=== PATIENT | female | born 1935 | race Caucasian/White ===

== ENCOUNTER 2016-09-02 14:21 | Emergency (ER) | payer MEDICARE ==
[~2016-09-02] VITALS: Ht 163.8 cm; Wt 55.3 kg
[~2016-09-02 14:21] MED LIST: GEMF600 PO; GLIM1 PO; GLUCTAB; LEVO.025 PO; PROP10TA26 PO; SULF1TAB47 PO; TOLT10TA PO
[2016-09-02 14:40] VITALS: BP 144/77; PULSE 87; RESP 16; TEMP 97.5; O2SAT 96
--- NOTE | 2016-09-02 14:50 | PD ---
HPI . congestion, cough, intermittent fever for 1 week Chief Complaint: Cold / Flu Symptoms Time Seen by Provider: 14:50 Travel History International Travel<30 days: Yes Contact w/Intl Traveler<30days: Yes Name of Country Traveled to: [facility] Traveled to known affect area: No History of Present Illness HPI 81-year-old female with history of hypertension, diabetes, hypothyroidism and chronic urinary tract infection here with complaints of cough, congestion, fever intermittently for 1 week (never checked temperature) as well as sore throat. Patient traveled on a cruise to the [facility] 2 weeks ago and states everybody in the cruise ship was sick. Today she is here with complaints of coughing and congestion. She admits to some chest tightness and tells me that she usually gets a shot that makes her feel much better. At the time of examination patient denies any chest pain, shortness breath, nausea, vomiting, diaphoresis, abdominal pain, GI complaints or weakness. She is accompanied by her . They are visiting from [place], [place]. Past surgical hysterectomy and bladder surgery. PFSH Past Medical History Hx Anticoagulant Therapy: Yes (asa 81mg) Cancer: Yes (OVARIAN) Cardiovascular Problems: Yes (htn on meds) Diabetes: Yes (type 2) Diminished Hearing: No Genitourinary: Yes (chronic uti) Hypertension: Yes Immunizations Current: Yes (FLU SHOT-2007) Thyroid Disease: Yes ?: Not Past Surgical History Genitourinary Surgery: Yes (bladder suspension) Hysterectomy: Yes Other Surgery: Yes (KIDNEY REPAIR) Social History Alcohol Use: No Tobacco Use: No Substance Use: No Allergies-Medications (Allergen,Severity, Reaction): Coded Allergies: ONI Inhibitors (Verified Allergy, Mild, 09/02/16) Cipro (Verified Allergy, Unknown, UNKNOWN, 09/02/16) Levaquin (Verified Allergy, Unknown, UNKNOWN, 09/02/16) Lisinopril (Verified Allergy, Unknown, UNKNOWN, 09/02/16) Reported Meds & Prescriptions Reported Meds & Active Scripts Active Proair Hfa 8.5 GM Inh (Albuterol Sulfate) 90 Mcg/Act Aer 2 Puff INH Q6H PRN 108 mcg/actuation Tessalon Perles (Benzonatate) 100 Mg Cap 100 Mg PO TID PRN Medrol Dosepak (Methylprednisolone) 4 Mg Dspk 4 Mg PO DIRECTED Per Pharmacist direction Zithromax Z-Neville (Azithromycin) 250 Mg Dspk 250 Mg PO DIRECTED 500 MG (2 tabs) day 1, then 1 tab days 2-5. Reported Glimepiride 1 Mg Tab 1 Mg PO DAILY Take with breakfast or first main meal Propranolol (Propranolol HCl) 10 Mg Tab Unknown Dose PO Q12HR Levothyroxine (Levothyroxine Sodium) 25 Mcg Tab 25 Mcg PO DAILY Metformin (Metformin HCl) 500 Mg Tab Unknown Dose PO BIDPC With meals Review of Systems General / Constitutional: Positive: Fever, Chills Eyes: No: Visual changes HENT: No: Headaches Cardiovascular: No: Chest Pain or Discomfort Respiratory: Positive: Cough, No: Shortness of Breath Gastrointestinal: No: Abdominal Pain Genitourinary: No: Dysuria Musculoskeletal: No: Pain Skin: No Rash Neurologic: No: Weakness Psychiatric: No: Depression Endocrine: No: Polydipsia Hematologic/Lymphatic: No: Easy Bruising Physical Exam Narrative GENERAL: AAO x 3, no acute distress, Well-nourished, well-developed patient. SKIN: Warm and dry. No visible rashes or bruising. HEAD: Normocephalic and atraumatic. EYES: No scleral icterus. No injection or drainage. ENT: No nasal drainage noted. Mucous membranes pink. Airway patent. No posterior pharynx erythema. Normal TM. NECK: Supple, trachea midline. No JVD. No lymphadenopathy. CARDIOVASCULAR: Regular rate and rhythm without murmurs, gallops, or rubs. RESPIRATORY: Breath sounds equally diminished bilaterally. No accessory muscle use. + scattered rhonchi. GASTROINTESTINAL: Abdomen soft, non-tender, nondistended. EXTREMITIES: No cyanosis or edema. BACK: Nontender without obvious deformity. No CVA tenderness. PSYCH: AAO x 3, normal affect. Data Data Last Documented VS Vital Signs Date Time Temp Pulse Resp B/P Pulse Ox O2 Delivery O2 Flow Rate FiO2 09/02/16 14:49 16 96 Room Air 09/02/16 14:40 97.5 87 144/77 Orders Chest, Single Ap (09/02/16 14:55) Albuterol-Ipratropium Neb (Duoneb Neb) (09/02/16 15:00) MDM Medical Decision Making Medical Screen Exam Complete: Yes Emergency Medical Condition: Yes Differential Diagnosis bronchitis, sinusitis, PNA Narrative Course 81-year-old female with history of hypertension, diabetes, hypothyroidism and chronic urinary tract infection here with complaints of cough, congestion, fever intermittently for 1 week (never checked temperature) as well as sore throat. Patient traveled on a cruise to the [facility] 2 weeks ago and states everybody in the cruise ship was sick. Today she is here with complaints of coughing and congestion. She admits to some chest tightness and tells me that she usually gets a shot that makes her feel much better. At the time of examination patient denies any chest pain, shortness breath, nausea, vomiting, diaphoresis, abdominal pain, GI complaints or weakness. She is accompanied by her . Although patient has recently traveled to the [facility], my index of suspicion for zika virus is low. Patient states there were not many mosquitoes in the area. She does not have any rash, arthralgia, or conjunctivitis. Symptoms are not consistent with zika exposure. Patient seen and examined. Chest x-ray ordered. No acute cardiopulmonary process. DuoNeb administered. will treat for acute bronchitis and sinusitis discussed with patient Explained that cough can linger for 6-8 weeks Given Z-Neville, Medrol Dosepak, Tessalon Perles and pro-air inhaler Patient verbalized understanding of instructions, questions were answered, and thanked me for their care. I advised them if their condition worsens, please return to the nearest emergency room for further care. Diagnosis Primary Impression: Acute bronchitis Qualified Code: J20.9 - Acute bronchitis, unspecified organism Additional Impression: Acute sinusitis Qualified Code: J01.90 - Acute sinusitis, recurrence not specified, unspecified location Patient Instructions: Acute Bronchitis (ED), General Instructions, Sinusitis ( ED) Additional Instructions: Please return to emergency department if your symptoms return or worsen. Follow up with your primary care provider. Take medications as prescribed. Med/Other Pt SpecificInfo: Prescription(s) given, No Change to Meds Scripts Albuterol 8.5 GM Inh (Proair Hfa 8.5 GM Inh)90 Mcg/Act Aer2 Puff INH Q6H PRN ( SHORTNESS OF BREATH) #1 INHALER Ref 0 108 mcg/actuation Prov:Jane Guajardo 09/02/16 Benzonatate (Tessalon Perles)100 Mg [id number] Mg PO TID PRN (COUGH) #30 CAP Ref 0 Prov:Jane Guajardo 09/02/16 Methylprednisolone Dosepak (Medrol Dosepak)4 Mg Dspk4 Mg PO DIRECTED #1 DSPK Ref 0 Per Pharmacist direction Prov:Jane Guajardo 09/02/16 Azithromycin (Zithromax Z-Neville)250 Mg [id number] Mg PO DIRECTED #1 DSPK Ref 0 500 MG (2 tabs) day 1, then 1 tab days 2-5. Prov:Jane Guajardo 09/02/16 Disposition: 01 DISCHARGE HOME Condition: Stable Jane Guajardo Sep 02, 2016 14:50
[2016-09-02] MEDS ORDERED: PROP10TA6 PO (14:53)
[2016-09-02] MEDS ORDERED: METF500T PO (14:53)
[2016-09-02] MEDS ORDERED: LEVO25TA4 PO (14:53)
[2016-09-02] MEDS ORDERED: GLIM1TAB PO (14:57)
[2016-09-02] MEDS ORDERED: RESP: ALBUTEROL 2.5 MG/IPRATROPIUM 0.5 MG NEB (SCH) INH ONE (15:00)
--- NOTE | 2016-09-02 15:44 | RADHPO ---
EXAM DATE/TIME: 09/02/2016 15:26 [facility] COMPARISON: No previous studies available for comparison. INDICATIONS : Short of breath. MEDICAL HISTORY : None. SURGICAL HISTORY : None. ENCOUNTER: Initial ACUITY: 3 days PAIN SCORE: 5/10 LOCATION: Bilateral chest FINDINGS: A single view of the chest demonstrates no focal consolidation or effusion. Moderate dextroscoliosis. No pneumothorax. CONCLUSION: 1. No acute findings. Moderate dextroscoliosis. Sixto Wood MD on September 02, 2016 at 15:41 Board Certified Radiologist. This report was verified electronically.
[2016-09-02] MEDS ORDERED: ALBUAER3 INH (15:47)
[2016-09-02] MEDS ORDERED: BENZ100 PO (15:47)
[2016-09-02] MEDS ORDERED: ZITHTAB PO (15:47)
[2016-09-02] MEDS ORDERED: MEDR4PAK PO (15:47)
== END 2016-09-02 15:57 | disposition home or self-care (01) ==
LOC: PHEFT 14:21
DX: J20.9 Acute bronchitis, unspecified (principal); J01.90 Acute sinusitis, unspecified
CPT/HCPCS: 71010; 94664; 99284

== ENCOUNTER 2016-10-18 09:10 | Observation (INO) | payer MEDICARE ==
[~2016-10-18] VITALS: Ht 162.6 cm; Wt 57.4 kg
[~2016-10-18 09:10] MED LIST changes: +ALBUAER3 INH; +BENZ100 PO; -GEMF600 PO; -GLIM1 PO; +GLIM1TAB PO; -GLUCTAB; -LEVO.025 PO; +LEVO25TA4 PO; +MEDR4PAK PO; +METF500T PO; -PROP10TA26 PO; +PROP10TA6 PO; -SULF1TAB47 PO; -TOLT10TA PO; +ZITHTAB PO
[2016-10-18 09:13] VITALS: BP 168/72; PULSE 77; RESP 15; TEMP 98; O2SAT 98
[2016-10-18 09:50] VITALS: BP 136/66; PULSE 91; RESP 18; O2SAT 98
[2016-10-18] MEDS ORDERED: SODIUM CHLORIDE 0.9% FLUSH 10 ML FLUSH IV FLUSH PRN (10:15)
--- NOTE | 2016-10-18 10:18 | PD ---
HPI Chief Complaint: Flank/Kidney Pain Time Seen by Provider: 09:51 Travel History International Travel<30 days: No Contact w/Intl Traveler<30days: No Traveled to known affect area: No History of Present Illness HPI The patient was seen and examined in the presence of the nurse. This patient complains of abdominal pain. Duration is 3 days. Pain is moderately severe. It's located in the right lower quadrant. No vomiting or diarrhea or fever or urinary complaints. 2 days ago she was seen at the [facility] emergency room in [place] for this problem. She reports extensive workup was done including a CAT scan that didn't show the cause of the problem and she was discharged. She is still having the pain. Has decreased appetite. No alleviating factors. PFSH Past Medical History Hx Anticoagulant Therapy: Yes (asa 81mg) Cancer: Yes (OVARIAN) Cardiovascular Problems: Yes (htn on meds) Diabetes: Yes Diminished Hearing: No Genitourinary: Yes (chronic uti) Hypertension: Yes Immunizations Current: Yes (FLU SHOT-2007) Thyroid Disease: Yes Tetanus Vaccination: Unknown Influenza Vaccination: Yes ?: Not Past Surgical History Genitourinary Surgery: Yes (bladder suspension) Hysterectomy: Yes (partial 40 years ago ) Other Surgery: Yes (KIDNEY REPAIR) Social History Alcohol Use: Yes (2 drinks a month ) Tobacco Use: No Substance Use: No Allergies-Medications (Allergen,Severity, Reaction): Coded Allergies: ONI Inhibitors (Verified Allergy, Mild, 09/02/16) Cipro (Verified Allergy, Unknown, UNKNOWN, 09/02/16) Levaquin (Verified Allergy, Unknown, UNKNOWN, 09/02/16) Lisinopril (Verified Allergy, Unknown, UNKNOWN, 09/02/16) Reported Meds & Prescriptions Reported Meds & Active Scripts Active Proair Hfa 8.5 GM Inh (Albuterol Sulfate) 90 Mcg/Act Aer 2 Puff INH Q6H PRN 108 mcg/actuation Reported Fenofibrate 160 Mg Tab 160 Mg PO DAILY Propranolol ER 24 HR (Propranolol HCl) 80 Mg Cap 80 Mg PO DAILY Levothyroxine (Levothyroxine Sodium) 75 Mcg Tab 75 Mcg PO DAILY Onglyza (Saxagliptin) 5 Mg Tab 5 Mg PO DAILY Glimepiride 2 Mg Tab 2 Mg PO BIDAC Lovaza (Vmqvb-5-Ddxc Ethyl Esters) 1 Gm Cap 2 Gm PO BID Metformin (Metformin HCl) 500 Mg Tab Unknown Dose PO BIDPC With meals Review of Systems General / Constitutional: No: Fever Eyes: No: Visual changes HENT: No: Headaches Cardiovascular: No: Chest Pain or Discomfort Respiratory: No: Shortness of Breath Gastrointestinal: Positive: Abdominal Pain, Loss of Appetite Genitourinary: No: Dysuria Musculoskeletal: No: Pain Skin: No Rash Neurologic: No: Weakness Psychiatric: No: Depression Endocrine: No: Polydipsia Hematologic/Lymphatic: No: Easy Bruising Physical Exam Narrative GENERAL: Well-nourished, well-developed patient with right lower quadrant pain SKIN: Focused skin assessment reveals no rash and nodules. Skin is Warm and dry. HEAD: Atraumatic. Normocephalic. EYES: Pupils equal and round. No scleral icterus. No injection or drainage. ENT: No nasal bleeding or discharge. Mucous membranes pink and moist. NECK: Trachea midline. No JVD. CARDIOVASCULAR: Regular rate and rhythm. No murmur appreciated. RESPIRATORY: No accessory muscle use. Clear to auscultation. Breath sounds equal bilaterally. GASTROINTESTINAL: Abdomen soft, right lower quadrant is tender, nondistended. Hepatic and splenic margins not palpable. No hernia detected. To a much lesser degree the left lower quadrant is tender MUSCULOSKELETAL: No obvious deformities. No clubbing. No cyanosis. No edema. NEUROLOGICAL: Awake and alert. No obvious cranial nerve deficits. Motor grossly within normal limits. Normal speech. PSYCHIATRIC: Appropriate mood and affect; insight and judgment normal. Data Data Last Documented VS Vital Signs Date Time Temp Pulse Resp B/P Pulse Ox O2 Delivery O2 Flow Rate FiO2 10/18/16 10:53 99 Room Air 10/18/16 09:50 91 18 136/66 10/18/16 09:13 98.0 Orders Urinalysis - C+S If Indicated (10/18/16 09:27) Complete Blood Count With Diff (10/18/16 10:06) Comprehensive Metabolic Panel (10/18/16 10:06) Lipase (10/18/16 10:06) Prothrombin Time / Inr (Pt) (10/18/16 10:06) Act Partial Throm Time (Ptt) (10/18/16 10:06) Ct Abd/Pel W Iv Contrast(Rout) (10/18/16 10:06) Iv Access Insert/Monitor (10/18/16 10:06) Ecg Monitoring (10/18/16 10:06) Oximetry (10/18/16 10:06) NPO (10/18/16 10:06) Sodium Chloride 0.9% Flush (Ns Flush) (10/18/16 10:15) Iohexol 350 Inj (Omnipaque 350 Inj) (10/18/16 11:42) Admit Order (Ed Use Only) (10/18/16 12:28) Labs Laboratory Tests Test 10/18/16 10/18/16 10:15 10:30 White Blood Count 8.4 TH/MM3 Red Blood Count 4.07 MIL/MM3 Hemoglobin 10.9 GM/DL Hematocrit 34.2 % Mean Corpuscular Volume 83.9 FL Mean Corpuscular Hemoglobin 26.8 PG Mean Corpuscular Hemoglobin 31.9 % Concent Red Cell Distribution Width 15.6 % Platelet Count 189 TH/MM3 Mean Platelet Volume 9.2 FL Neutrophils (%) (Auto) 74.7 % Lymphocytes (%) (Auto) 15.5 % Monocytes (%) (Auto) 8.8 % Eosinophils (%) (Auto) 0.8 % Basophils (%) (Auto) 0.2 % Neutrophils # (Auto) 6.3 TH/MM3 Lymphocytes # (Auto) 1.3 TH/MM3 Monocytes # (Auto) 0.7 TH/MM3 Eosinophils # (Auto) 0.1 TH/MM3 Basophils # (Auto) 0.0 TH/MM3 CBC Comment DIFF FINAL Differential Comment Prothrombin Time 11.5 SEC Prothromb Time International 1.0 RATIO Ratio Activated Partial 29.9 SEC Thromboplast Time Sodium Level 135 MEQ/L Potassium Level 3.7 MEQ/L Chloride Level 102 MEQ/L Carbon Dioxide Level 26.6 MEQ/L Anion Gap 6 MEQ/L Blood Urea Nitrogen 11 MG/DL Creatinine 0.80 MG/DL Estimat Glomerular Filtration 69 ML/MIN Rate Random Glucose 216 MG/DL Calcium Level 9.1 MG/DL Total Bilirubin 0.6 MG/DL Aspartate Amino Transf 17 U/L (AST/SGOT) Alanine Aminotransferase 15 U/L (ALT/SGPT) Alkaline Phosphatase 48 U/L Total Protein 7.3 GM/DL Albumin 3.2 GM/DL Lipase 180 U/L Urine Color YELLOW Urine Turbidity CLEAR Urine pH 7.0 Urine Specific Mclean 1.007 Urine Protein NEG mg/dL Urine Glucose (UA) 70 mg/dL Urine Ketones NEG mg/dL Urine Occult Blood NEG Urine Nitrite NEG Urine Bilirubin NEG Urine Urobilinogen LESS THAN 2.0 MG/DL Urine Leukocyte Esterase NEG Urine WBC 1 /hpf Urine Squamous Epithelial <1 /hpf Cells Microscopic Urinalysis Comment CULT NOT INDICATED MDM Medical Decision Making Medical Screen Exam Complete: Yes Emergency Medical Condition: Yes Medical Record Reviewed: Yes Differential Diagnosis Appendicitis, colitis, obstruction Narrative Course I have reviewed the patient's electronic medical record. Patient was here in August 2016 for bronchitis IV placed CBC is normal Metabolic profile is normal LFTs are normal Lipase is normal Coagulation studies are normal Urinalysis is clean CT of abdomen and pelvis is consistent with acute appendicitis I offered her pain medication but she declines I gave her 3 g IV Unasyn and discussed with general surgeon Dr. Jarrett will admit her and perform appendectomy when the operating rooms schedule allows Diagnosis Primary Impression: Acute appendicitis Qualified Code: K35.3 - Acute appendicitis with localized peritonitis Admitting Information Admitting Physician Requests: Admit Rajan Woodward MD Oct 18, 2016 10:18
[2016-10-18] MEDS ORDERED: LEVO75TA3 PO (10:38)
[2016-10-18] MEDS ORDERED: ONGL5TAB PO (10:38)
[2016-10-18] MEDS ORDERED: PROP80CA PO (10:38)
[2016-10-18] MEDS ORDERED: FENO160T PO (10:38)
[2016-10-18] MEDS ORDERED: OMEG1CAP53 PO (10:38)
[2016-10-18] MEDS ORDERED: GLIM2TAB PO (10:38)
[2016-10-18 10:44] LABS: BLOOD, URINE NEG (NEG); GLUCOSE,URINE 70 mg/dL (NEG); KETONE, URINE NEG (NEG); NITRITE,URINE NEG (NEG); SQUAMOUS EPITHELIAL CELL URINE <1 /hpf (0-5); URINE COLOR YELLOW (YELLW/STRAW)
[2016-10-18 10:45] LABS: COMMENT (UR) CULT NOT INDICATED; CULTURE IF INDICATED CULT NOT INDICATED
[2016-10-18 10:52] LABS: AUTOMATED NEUTROPHIL # 6.3 TH/MM3 (1.8-7.7); BASOPHIL % 0.2 % (0.0-2.0); EOSINOPHIL # 0.1 TH/MM3 (0-0.4); EOSINOPHIL % 0.8 % (0.0-4.0); HEMATOCRIT 34.2 % (35.0-46.0); HEMO FLAGS DIFF FINAL; LYMPH % 15.5 % (9.0-44.0); LYMPHOCYTE # 1.3 TH/MM3 (1.0-4.8); MEAN CELL VOLUME 83.9 FL (80.0-100.0); MEAN CORPUSCULAR HEMOGLOBIN 26.8 PG (27.0-34.0); MEAN CORPUSCULAR HGB CONC 31.9 % (32.0-36.0); MONO % 8.8 % (0.0-8.0); NEUT % 74.7 % (16.0-70.0); PLATELET COUNT 189 TH/MM3 (150-450); RED BLOOD COUNT 4.07 MIL/MM3 (4.00-5.30); RED CELL DISTRIBUTION WIDTH 15.6 % (11.6-17.2); WHITE BLOOD COUNT 8.4 TH/MM3 (4.0-11.0)
[2016-10-18 10:53] VITALS: O2SAT 99
[2016-10-18 10:57] LABS: APTT (PATIENT) 29.9 SEC (24.3-30.1); PROTHROMBIN TIME - PATIENT 11.5 SEC (9.8-11.6)
[2016-10-18 11:12] LABS: ALT (GPT) 15 U/L (10-53); ANION GAP 6 MEQ/L (5-15); AST (GOT) 17 U/L (15-37); BICARBONATE 26.6 MEQ/L (21.0-32.0); BLOOD UREA NITROGEN 11 MG/DL (7-18); CHLORIDE 102 MEQ/L (98-107); GLOMERULAR FILTRATION RATE 69 ML/MIN (>89); POTASSIUM 3.7 MEQ/L (3.5-5.1); SODIUM (NA) 135 MEQ/L (136-145)
[2016-10-18 11:14] LABS: ALKALINE PHOSPHATASE 48 U/L (45-117); TOTAL BILIRUBIN ADULT 0.6 MG/DL (0.2-1.0)
[2016-10-18] MEDS ORDERED: METFORMIN HOLD POST IV CONTRAST SCH (11:40)
[2016-10-18] MEDS ORDERED: IOHEXOL 350 MG/ML 10 ML VIAL (for RAD DIAG) IV ONE (11:42)
[2016-10-18] MEDS ORDERED: PROPOFOL 200 MG/20 ML AMP IV ONE (12:00)
[2016-10-18] MEDS ORDERED: KETOROLAC TROMETHAMINE 60 MG/2 ML (IM) VIAL IM ONE (12:00)
[2016-10-18] MEDS ORDERED: PHENYLEPH/NS 1000 MCG/10 ML SYR IV ONE (12:00)
[2016-10-18] MEDS ORDERED: LACTATED RINGER'S 1000 ML INJ 1,000 ML IV ONE (12:00)
[2016-10-18] MEDS ORDERED: ONDANSETRON HCL 4 MG/2 ML VIAL IV PUSH ONE (12:00)
--- NOTE | 2016-10-18 12:16 | RADRPT ---
EXAM DATE/TIME: 10/18/2016 11:27 [facility] COMPARISON: No previous studies available for comparison. INDICATIONS : Right lower quadrant pain that radiates to the right flank. IV CONTRAST: 95 cc Omnipaque 350 (iohexol) IV ORAL CONTRAST: No oral contrast ingested. RADIATION DOSE: 9.96 CTDIvol (mGy) MEDICAL HISTORY : Diabetes mellitus type 2. Hypertension. Carcinoma, ovarian. SURGICAL HISTORY : Hysterectomy. ENCOUNTER: Initial ACUITY: 4 - 6 days PAIN SCALE: 5/10 LOCATION: Right lower quadrant TECHNIQUE: Volumetric scanning of the abdomen and pelvis was performed. Using automated exposure control and ad justment of the mA and/or kV according to patient size, radiation dose was kept as low as reasonably achievable to obtain optimal diagnostic quality images. FINDINGS: LOWER LUNGS: There is patchy mild tree in bud infiltrate in the right lung base and a irregular focal nodular dens ity in the medial aspect of the right middle lobe LIVER: Cirrhotic appearance. No evidence of mass or biliary ductal dilatation. Gallbladder is mildly distend ed and contains numerous stones come including a stone within the gallbladder neck. SPLEEN: Upper limits of normal size. Small adjacent splenule in the inferior splenic hilum. PANCREAS: Within normal limits. KIDNEYS: Normal in size and shape. There is no mass, stone or hydronephrosis. ADRENAL GLANDS: Within normal limits. VASCULAR: There is no aortic aneurysm. BOWEL/MESENTERY: There are inflammatory changes adjacent to the cecum. Appendix is mildly distended. There are also a couple of cecal diverticula noted. The distal ileal bowel loops are focally unremarkable. There is no evidence of abscess or perforation. No evidence of bowel obstruction. ABDOMINAL WALL: Within normal limits. RETROPERITONEUM: There is no lymphadenopathy. BLADDER: No wall thickening or mass. Radiodense material at the bladder base and around the proximal urethra p resumably associated with incontinence therapy. REPRODUCTIVE: Uterus is surgically absent. No evidence of pelvic mass or free fluid. INGUINAL: There is no lymphadenopathy or hernia. MUSCULOSKELETAL: Within normal limits for patient age. CONCLUSION: Findings most consistent with appendicitis. Colonic diverticulosis is also present. Distended gallbladder with stones. Cirrhotic liver appearance. Nodular density in the right middle lobe will need to be followed. Followup with standard contrasted CT of the chest would be recommended on an outpatient basis. Brendan Alatorre MD on October 18, 2016 at 12:05 Board Certified Radiologist. This report was verified electronically.
[2016-10-18 12:45] VITALS: BP 137/69; PULSE 87; RESP 18; O2SAT 98
[2016-10-18] MEDS ORDERED: AMPICILLIN-SULBACTAM INJ 3 GM in SODIUM CHLORIDE 0.9% INJ 100 ML IV ONE (12:45)
[2016-10-18] MEDS ORDERED: SUGAMMADEX SODIUM 200 MG/2 ML VIAL IV PUSH ONE ×2 (12:52)
[2016-10-18] MEDS ORDERED: ACETAMINOPHEN 1000 MG/100 ML VIAL IV ONE (12:52)
[2016-10-18] MEDS ORDERED: DEXAMETHASONE SOD PHOS 4 MG/ML VIAL ONE (12:52)
[2016-10-18] MEDS ORDERED: BUPIVACAINE/EPINEPHRINE 0.25% 50 ML VIAL ONE (12:54)
[2016-10-18] MEDS ORDERED: FAMOTIDINE 20 MG/2 ML VIAL ONE (13:26)
--- NOTE | 2016-10-18 14:50 | HHI.HP ---
cc: Memo Jarrett MD HPI Service General Surgery Primary Care Physician Unknown Admission Diagnosis acute appendicitis Chief Complaint: Abdominal pain History of Present Illness This is a 81-year-old female who developed abdominal pain upon waking up on Saturday morning. Her was at the [facility] for treatment and was sent into the emergency department to [facility] in [place]. A CT scan was obtained and showed no acute findings. The patient was discharged from the ED and returned home to [place]. Since Saturday the pain has increased severely. She has no associated nausea or vomiting. She has little appetite. She came to the emergency room at [place] for evaluation of abdominal pain. A CT of abdomen and pelvis was obtained and showed acute appendicitis. A evaluation by dental surgery was requested for possible laparoscopic appendectomy. Attending Note - Dr. Jarrett Patient with findings C/W acute appendicitis. Abdomen painful on entire right side, not localized to RLQ. Peritoneal signs apparent. Risks discussed with patient, including but not limited to: bleeding, infection , need for drainage, intestinal leakage, need for reoperation. She vocalizes understanding and agrees to proceed. The exam, history, and the medical decision-making described in the above note were completed with the assistance of the mid-level provider. I reviewed and agree with the findings presented. I attest that I had a [id number] encounter with the patient on the same day, and personally performed and documented my assessment and findings in the medical record. Review of Systems Constitutional: COMPLAINS OF: Fatigue, DENIES: Fever, Chills Endocrine: DENIES: Polydipsia, Polyuria, Polyphagia Eyes: DENIES: Diplopia Ears, nose, mouth, throat: DENIES: Hearing loss Respiratory: DENIES: Apneas, Cough Cardiovascular: DENIES: Chest pain Gastrointestinal: COMPLAINS OF: Abdominal pain, DENIES: Nausea, Vomiting Genitourinary: DENIES: Urinary frequency, Urinary incontinence Musculoskeletal: DENIES: Joint pain Integumentary: DENIES: Abnormal pigmentation Hematologic/lymphatic: DENIES: Bruising Immunologic/allergic: DENIES: Eczema Neurologic: DENIES: Abnormal gait, Headache Psychiatric: DENIES: Mood changes, Depression Past Family Social History Past Medical History Diabetes mellitus Hypertension High cholesterol Hypothyroidism Uterine cancer Past Surgical History Removal of uterus Several bladder suspension surgeries Reported Medications See chart Allergies: Coded Allergies: ONI Inhibitors (Verified Allergy, Mild, 09/02/16) Cipro (Verified Allergy, Unknown, UNKNOWN, 09/02/16) Levaquin (Verified Allergy, Unknown, UNKNOWN, 09/02/16) Lisinopril (Verified Allergy, Unknown, UNKNOWN, 09/02/16) Active Ordered Medications Current Medications Medications (Trade) Dose Ordered Sig/Lynette Route Start Time Stop Time Status Last Admin (NS Flush) 2 ml UNSCH PRN IV FLUSH 10/18/16 10:15 Family History Noncontributory Social History Denies tobacco use Denies EtOH use Denies illicit drug use Physical Exam Vital Signs Vital Signs Date Time Temp Pulse Resp B/P Pulse Ox O2 Delivery O2 Flow Rate FiO2 10/18/16 12:45 87 18 137/69 98 Room Air 10/18/16 10:53 99 Room Air 10/18/16 09:50 91 18 136/66 98 Room Air 10/18/16 09:13 98.0 77 15 168/72 98 Physical Exam GENERAL: 81-year-old female resting in bed SKIN: Warm and dry. HEAD: Atraumatic. Normocephalic. EYES: Pupils equal and round. No scleral icterus. No injection or drainage. ENT: No nasal bleeding or discharge. Mucous membranes pink and moist. NECK: Trachea midline. CARDIOVASCULAR: Regular rate and rhythm. RESPIRATORY: No accessory muscle use. Clear to auscultation. Breath sounds equal bilaterally. GASTROINTESTINAL: Abdomen soft, tenderness in the right lower quadrant with palpation. No visible scars. MUSCULOSKELETAL: Extremities without clubbing, cyanosis, or edema. No obvious deformities. NEUROLOGICAL: Awake and alert. No obvious cranial nerve deficits. Motor grossly within normal limits. Five out of 5 muscle strength in the arms and legs. Normal speech. PSYCHIATRIC: Appropriate mood and affect; insight and judgment normal. Laboratory Laboratory Tests Test 10/18/16 10/18/16 10:15 10:30 White Blood Count 8.4 Red Blood Count 4.07 Hemoglobin 10.9 Hematocrit 34.2 Mean Corpuscular Volume 83.9 Mean Corpuscular Hemoglobin 26.8 Mean Corpuscular Hemoglobin 31.9 Concent Red Cell Distribution Width 15.6 Platelet Count 189 Mean Platelet Volume 9.2 Neutrophils (%) (Auto) 74.7 Lymphocytes (%) (Auto) 15.5 Monocytes (%) (Auto) 8.8 Eosinophils (%) (Auto) 0.8 Basophils (%) (Auto) 0.2 Neutrophils # (Auto) 6.3 Lymphocytes # (Auto) 1.3 Monocytes # (Auto) 0.7 Eosinophils # (Auto) 0.1 Basophils # (Auto) 0.0 CBC Comment DIFF FINAL Differential Comment Prothrombin Time 11.5 Prothromb Time International 1.0 Ratio Activated Partial 29.9 Thromboplast Time Sodium Level 135 Potassium Level 3.7 Chloride Level 102 Carbon Dioxide Level 26.6 Anion Gap 6 Blood Urea Nitrogen 11 Creatinine 0.80 Estimat Glomerular Filtration 69 Rate Random Glucose 216 Calcium Level 9.1 Total Bilirubin 0.6 Aspartate Amino Transf 17 (AST/SGOT) Alanine Aminotransferase 15 (ALT/SGPT) Alkaline Phosphatase 48 Total Protein 7.3 Albumin 3.2 Lipase 180 Urine Color YELLOW Urine Turbidity CLEAR Urine pH 7.0 Urine Specific Loraine 1.007 Urine Protein NEG Urine Glucose (UA) 70 Urine Ketones NEG Urine Occult Blood NEG Urine Nitrite NEG Urine Bilirubin NEG Urine Urobilinogen LESS THAN 2.0 Urine Leukocyte Esterase NEG Urine WBC 1 Urine Squamous Epithelial <1 Cells Microscopic Urinalysis Comment CULT NOT INDICATED Result Diagram: 10/18/16 1015 10/18/16 1015 Imaging Last 48 hours Impressions Abdomen/Pelvis CT 10/18/16 1006 Signed Impressions: Service Date/Time: October 11:27 - CONCLUSION: Findings most consistent with appendicitis. Colonic diverticulosis is also present. Distended gallbladder with stones. Cirrhotic liver appearance. Nodular density in the right middle lobe will need to be followed. Followup with standard contrasted CT of the chest would be recommended on an outpatient basis. Brendan Alatorre MD Assessment and Plan Assessment and Plan This is a 81-year-old female with acute appendicitis -Nothing by mouth -Obtain consent -To OR with Dr. Jarrett for laparoscopic appendectomy Discussed Condition With Mr and Mrs Anderson [employer] Oct 18, 2016 14:50 Memo Jarrett MD Oct 18, 2016 15:28
[2016-10-18] MEDS ORDERED: Post-op Orders (for Pharmacy) MISC XX ONE (15:04)
[2016-10-18] MEDS ORDERED: fentaNYL CITRATE 250 MCG/5 ML AMP ONE (15:15)
[2016-10-18] MEDS ORDERED: NALOXONE HCL 0.4 MG/ML AMP IV PRN (15:30)
[2016-10-18] MEDS ORDERED: HYDROmorphone HCL PF 1 MG/ML VIAL IV PRN (15:30)
[2016-10-18] MEDS: LACTATED RINGER'S 1000 ML INJ 1,000 ML IV SCH ×2 (15:30→23:53)
[2016-10-18] MEDS ORDERED: diphenhydrAMINE HCL 50 MG/ML VIAL IVP PRN (15:30)
[2016-10-18] MEDS ORDERED: ONDANSETRON HCL 4 MG/2 ML VIAL IV PRN (15:30)
[2016-10-18] MEDS ORDERED: SODIUM CHLORIDE 0.9% FLUSH 5 ML FLUSH IVF PRN (15:30)
[2016-10-18] MEDS ORDERED: DO NOT ADM ANY ANTICOAGULANT DRUGS PRN (15:45)
[2016-10-18] MEDS ORDERED: *morphine SULFATE 8 MG/ML PERIprocedure ONLY ONE ×2 (15:50→16:34)
[2016-10-18] MEDS: ceFAZolin 2 GM PREMIX 50 ML IV SCH ×2 (18:55→23:52)
[2016-10-18 20:00] VITALS: BP 139/66; PULSE 77; RESP 18; TEMP 96.2; O2SAT 99
[2016-10-18] MEDS: SODIUM CHLORIDE 0.9% FLUSH 5 ML FLUSH IVF SCH (21:00)
[2016-10-18] MEDS: metroNIDAZOLE 500 MG INJ 100 ML IV SCH (23:52)
[2016-10-19] VITALS: BP 131/63; PULSE 73; RESP 16; TEMP 96.2; O2SAT 100
[2016-10-19 05:24] LABS: AUTOMATED NEUTROPHIL # 4.7 TH/MM3 (1.8-7.7); BASOPHIL % 0.4 % (0.0-2.0); EOSINOPHIL % 0.1 % (0.0-4.0); HEMATOCRIT 28.4 % (35.0-46.0); HEMO FLAGS DIFF FINAL; LYMPH % 15.1 % (9.0-44.0); MEAN CELL VOLUME 83.5 FL (80.0-100.0); MEAN CORPUSCULAR HEMOGLOBIN 27.5 PG (27.0-34.0); MEAN CORPUSCULAR HGB CONC 32.9 % (32.0-36.0); MONO % 12.1 % (0.0-8.0); NEUT % 72.3 % (16.0-70.0); PLATELET COUNT 166 TH/MM3 (150-450); RED CELL DISTRIBUTION WIDTH 15.8 % (11.6-17.2); WHITE BLOOD COUNT 6.5 TH/MM3 (4.0-11.0)
[2016-10-19 05:47] LABS: BICARBONATE 29.1 MEQ/L (21.0-32.0); POTASSIUM 4.3 MEQ/L (3.5-5.1)
[2016-10-19] MEDS: LACTATED RINGER'S 1000 ML INJ 1,000 ML IV SCH ×4 (06:29→20:42)
[2016-10-19] MEDS: ACETAMINOPHEN/HYDROcodone 325 MG/5 MG TAB PO PRN ×4 (06:29→20:36)
[2016-10-19 08:00] VITALS: BP 106/50; PULSE 71; RESP 16; TEMP 96.7; O2SAT 100
[2016-10-19 09:42] VITALS: O2SAT 96
--- NOTE | 2016-10-19 09:45 | HHI.PR ---
Subjective Subjective Notes Resting in bed at bedside Still painful but had good night last night Objective Vitals/I&O Vital Signs Date Time Temp Pulse Resp B/P Pulse Ox O2 Delivery O2 Flow Rate FiO2 10/19/16 09:42 96 21 10/19/16 08:00 96.7 71 16 106/50 10/18/16 20:02 Nasal Cannula 2.00 Labs Laboratory Tests Test 10/18/16 10/18/16 10/19/16 10:15 10:30 05:03 White Blood Count 8.4 6.5 Red Blood Count 4.07 3.40 Hemoglobin 10.9 9.3 Hematocrit 34.2 28.4 Mean Corpuscular Volume 83.9 83.5 Mean Corpuscular Hemoglobin 26.8 27.5 Mean Corpuscular Hemoglobin 31.9 32.9 Concent Red Cell Distribution Width 15.6 15.8 Platelet Count 189 166 Mean Platelet Volume 9.2 8.6 Neutrophils (%) (Auto) 74.7 72.3 Lymphocytes (%) (Auto) 15.5 15.1 Monocytes (%) (Auto) 8.8 12.1 Eosinophils (%) (Auto) 0.8 0.1 Basophils (%) (Auto) 0.2 0.4 Neutrophils # (Auto) 6.3 4.7 Lymphocytes # (Auto) 1.3 1.0 Monocytes # (Auto) 0.7 0.8 Eosinophils # (Auto) 0.1 0.0 Basophils # (Auto) 0.0 0.0 CBC Comment DIFF FINAL DIFF FINAL Differential Comment Prothrombin Time 11.5 Prothromb Time International 1.0 Ratio Activated Partial 29.9 Thromboplast Time Sodium Level 135 141 Potassium Level 3.7 4.3 Chloride Level 102 105 Carbon Dioxide Level 26.6 29.1 Anion Gap 6 7 Blood Urea Nitrogen 11 14 Creatinine 0.80 0.78 Estimat Glomerular Filtration 69 71 Rate Random Glucose 216 112 Calcium Level 9.1 8.6 Total Bilirubin 0.6 Aspartate Amino Transf 17 (AST/SGOT) Alanine Aminotransferase 15 (ALT/SGPT) Alkaline Phosphatase 48 Total Protein 7.3 Albumin 3.2 Lipase 180 Urine Color YELLOW Urine Turbidity CLEAR Urine pH 7.0 Urine Specific [place] 1.007 Urine Protein NEG Urine Glucose (UA) 70 Urine Ketones NEG Urine Occult Blood NEG Urine Nitrite NEG Urine Bilirubin NEG Urine Urobilinogen LESS THAN 2.0 Urine Leukocyte Esterase NEG Urine WBC 1 Urine Squamous Epithelial <1 Cells Microscopic Urinalysis Comment CULT NOT INDICATED Radiology Last 48 hours Impressions Abdomen/Pelvis CT 10/18/16 1006 Signed Impressions: Service Date/Time: October 11:27 - CONCLUSION: Findings most consistent with appendicitis. Colonic diverticulosis is also present. Distended gallbladder with stones. Cirrhotic liver appearance. Nodular density in the right middle lobe will need to be followed. Followup with standard contrasted CT of the chest would be recommended on an outpatient basis. Brendan Alatorre MD Cardiovascular: Regular Lungs: Clear Abdomen: Other (RLQ tender; drain in place with minimal SS drainage; lap sites c/d/i ) Extremities: No edema A/P Assessment and Plan 81 year old female POD1 lap appy with mircro perforation of cecum and liver biopsy -Okay to start sips of ice water, ice chips and popsicles -Continue to monitor HEIDE drain -OOB and mobilize today -Pain control Attending Note - Dr. Jarrett Abdomen better; still with very tender RLQ Wants to eat Discussed findings with pt. and ; need to wait before advancing diet. The exam, history, and the medical decision-making described in the above note were completed with the assistance of the mid-level provider. I reviewed and agree with the findings presented. I attest that I had a [id number] encounter with the patient on the same day, and personally performed and documented my assessment and findings in the medical record. Paulina Slaughter Oct 19, 2016 09:44 Memo Jarrett MD Oct 19, 2016 14:19
[2016-10-19] MEDS: ceFAZolin 2 GM PREMIX 50 ML IV SCH (09:51)
[2016-10-19] MEDS: metroNIDAZOLE 500 MG INJ 100 ML IV SCH (09:51)
[2016-10-19] MEDS: SODIUM CHLORIDE 0.9% FLUSH 5 ML FLUSH IVF SCH ×2 (09:55→21:00)
[2016-10-19 12:00] VITALS: BP 116/54; PULSE 77; RESP 16; TEMP 97.1; O2SAT 97
[2016-10-19] MEDS: PIPERACIL-TAZO 3.375 GM PREMIX 50 ML IV SCH ×2 (15:00→20:35)
[2016-10-19] MEDS: ENOXAPARIN SODIUM 40 MG/0.4 ML SYRINGE SQ SCH (15:06)
[2016-10-19 16:00] VITALS: BP 114/61; PULSE 79; RESP 16; TEMP 98.4; O2SAT 90
[2016-10-19 20:00] VITALS: BP 135/63; PULSE 80; RESP 20; TEMP 98.4; O2SAT 95
--- NOTE | 2016-10-19 22:08 | EKG ---
Date Performed: 10/18/2016 Time Performed: 13:34:09 PTAGE: 81 years EKG: Sinus rhythm INCOMPLETE RIGHT BUNDLE BRANCH BLOCK Consider anterolateral and inferior ischemia. ABNORMAL ECG NO PREVIOUS TRACING DOCTOR: Ramon Puente Interpretating Date/Time 10/19/2016 22:06:50
[2016-10-20] VITALS: BP 112/53; PULSE 81; RESP 18; TEMP 96.6; O2SAT 94
[2016-10-20] MEDS: ACETAMINOPHEN/HYDROcodone 325 MG/5 MG TAB PO PRN ×4 (01:56→21:44)
[2016-10-20 04:00] VITALS: BP 113/54; PULSE 78; RESP 18; TEMP 96.7; O2SAT 94
[2016-10-20] MEDS: PIPERACIL-TAZO 3.375 GM PREMIX 50 ML IV SCH ×3 (05:00→21:39)
[2016-10-20 08:00] VITALS: BP 158/65; PULSE 76; RESP 17; TEMP 96; O2SAT 94
[2016-10-20] MEDS: SODIUM CHLORIDE 0.9% FLUSH 5 ML FLUSH IVF SCH ×2 (08:43→21:00)
[2016-10-20 12:00] VITALS: BP 137/59; PULSE 81; RESP 18; TEMP 97; O2SAT 96
--- NOTE | 2016-10-20 13:01 | HHI.PR ---
Subjective Subjective Notes Up walking today three times Still quite painful RLQ Objective Vitals/I&O Vital Signs Date Time Temp Pulse Resp B/P Pulse Ox O2 Delivery O2 Flow Rate FiO2 10/20/16 08:00 96.0 76 17 158/65 94 10/19/16 09:42 21 10/18/16 20:02 Nasal Cannula 2.00 Labs Laboratory Tests Test 10/20/16 11:36 Creatinine 0.61 Estimat Glomerular Filtration 95 Rate Radiology Last 48 hours Impressions Abdomen/Pelvis CT 10/18/16 1006 Signed Impressions: Service Date/Time: October 11:27 - CONCLUSION: Findings most consistent with appendicitis. Colonic diverticulosis is also present. Distended gallbladder with stones. Cirrhotic liver appearance. Nodular density in the right middle lobe will need to be followed. Followup with standard contrasted CT of the chest would be recommended on an outpatient basis. Brendan Alatorre MD Lungs: Clear Abdomen: Non-distended, Post-op tenderness (More than usual; still with peritoneal irrigation) A/P Assessment and Plan 81 year old female POD1 lap appy with mircro perforation of cecum and liver biopsy -Okay to start sips of ice water, ice chips and popsicles -Continue to monitor HEIDE drain -OOB and mobilize today -Pain control Attending Note - Dr. Jarrett Abdomen better; still with very tender RLQ Wants to eat Discussed findings with pt. and ; need to wait before advancing diet. The exam, history, and the medical decision-making described in the above note were completed with the assistance of the mid-level provider. I reviewed and agree with the findings presented. I attest that I had a [id number] encounter with the patient on the same day, and personally performed and documented my assessment and findings in the medical record. Memo Jarrett MD Oct 20, 2016 13:01
[2016-10-20 14:04] LABS: AUTOMATED NEUTROPHIL # 2.6 TH/MM3 (1.8-7.7); BASOPHIL % 0.4 % (0.0-2.0); EOSINOPHIL # 0.1 TH/MM3 (0-0.4); EOSINOPHIL % 1.7 % (0.0-4.0); HEMATOCRIT 27.1 % (35.0-46.0); HEMO FLAGS DIFF FINAL; LYMPH % 23.1 % (9.0-44.0); MEAN CELL VOLUME 83.5 FL (80.0-100.0); MEAN CORPUSCULAR HEMOGLOBIN 27.4 PG (27.0-34.0); MEAN CORPUSCULAR HGB CONC 32.8 % (32.0-36.0); MONO % 11.8 % (0.0-8.0); PLATELET COUNT 165 TH/MM3 (150-450); RED BLOOD COUNT 3.25 MIL/MM3 (4.00-5.30); RED CELL DISTRIBUTION WIDTH 15.4 % (11.6-17.2); WHITE BLOOD COUNT 4.2 TH/MM3 (4.0-11.0)
[2016-10-20] MEDS: LACTATED RINGER'S 1000 ML INJ 1,000 ML IV SCH ×2 (15:28→23:28)
[2016-10-20 16:00] VITALS: BP 164/71; PULSE 85; RESP 18; TEMP 97.4; O2SAT 95
[2016-10-20] MEDS: ENOXAPARIN SODIUM 40 MG/0.4 ML SYRINGE SQ SCH (17:08)
[2016-10-20 20:00] VITALS: BP 184/77; PULSE 82; RESP 17; TEMP 96; O2SAT 94
--- NOTE | 2016-10-20 21:07 | HHI.PR ---
Subjective Subjective Notes Less energetic today; doesn't feel as well Objective Vitals/I&O Vital Signs Date Time Temp Pulse Resp B/P Pulse Ox O2 Delivery O2 Flow Rate FiO2 10/20/16 16:00 97.4 85 18 164/71 95 10/19/16 09:42 21 10/18/16 20:02 Nasal Cannula 2.00 Labs Laboratory Tests Test 10/20/16 10/20/16 11:36 13:17 Creatinine 0.61 Estimat Glomerular Filtration 95 Rate White Blood Count 4.2 Red Blood Count 3.25 Hemoglobin 8.9 Hematocrit 27.1 Mean Corpuscular Volume 83.5 Mean Corpuscular Hemoglobin 27.4 Mean Corpuscular Hemoglobin 32.8 Concent Red Cell Distribution Width 15.4 Platelet Count 165 Mean Platelet Volume 8.4 Neutrophils (%) (Auto) 63.0 Lymphocytes (%) (Auto) 23.1 Monocytes (%) (Auto) 11.8 Eosinophils (%) (Auto) 1.7 Basophils (%) (Auto) 0.4 Neutrophils # (Auto) 2.6 Lymphocytes # (Auto) 1.0 Monocytes # (Auto) 0.5 Eosinophils # (Auto) 0.1 Basophils # (Auto) 0.0 CBC Comment DIFF FINAL Differential Comment Radiology Last 48 hours Impressions Abdomen/Pelvis CT 10/18/16 1006 Signed Impressions: Service Date/Time: October 11:27 - CONCLUSION: Findings most consistent with appendicitis. Colonic diverticulosis is also present. Distended gallbladder with stones. Cirrhotic liver appearance. Nodular density in the right middle lobe will need to be followed. Followup with standard contrasted CT of the chest would be recommended on an outpatient basis. Brendan Alatorre MD Lungs: Clear Abdomen: Other (Tender in RLQ with guarding still) A/P Assessment and Plan 81 year old female POD#2 lap appy with micro perforation of cecum and liver biopsy -Okayice chips and popsicles -Continue to monitor HEIDE drain - still serosanguinous -OOB and mobilize today -Pain control - WBC's normal today Memo Jarrett MD Oct 20, 2016 21:07
[2016-10-21] VITALS: BP 183/80; PULSE 82; RESP 17; TEMP 97.5; O2SAT 96
[2016-10-21 04:00] VITALS: BP 187/85; PULSE 87; RESP 17; TEMP 96.5; O2SAT 96
[2016-10-21] MEDS: PIPERACIL-TAZO 3.375 GM PREMIX 50 ML IV SCH (06:06)
[2016-10-21] MEDS: LACTATED RINGER'S 1000 ML INJ 1,000 ML IV SCH (07:28)
[2016-10-21] MEDS: SODIUM CHLORIDE 0.9% FLUSH 5 ML FLUSH IVF SCH (09:00)
--- NOTE | 2016-10-21 09:26 | HHI.PR ---
Subjective Subjective Notes tolerating clears, +BM, pain 0/10, wants to go home today Objective Vitals/I&O Vital Signs Date Time Temp Pulse Resp B/P Pulse Ox O2 Delivery O2 Flow Rate FiO2 10/21/16 04:00 96.5 87 17 187/85 96 10/19/16 09:42 21 10/18/16 20:02 Nasal Cannula 2.00 Labs Laboratory Tests Test 10/20/16 10/20/16 11:36 13:17 Creatinine 0.61 Estimat Glomerular Filtration 95 Rate White Blood Count 4.2 Red Blood Count 3.25 Hemoglobin 8.9 Hematocrit 27.1 Mean Corpuscular Volume 83.5 Mean Corpuscular Hemoglobin 27.4 Mean Corpuscular Hemoglobin 32.8 Concent Red Cell Distribution Width 15.4 Platelet Count 165 Mean Platelet Volume 8.4 Neutrophils (%) (Auto) 63.0 Lymphocytes (%) (Auto) 23.1 Monocytes (%) (Auto) 11.8 Eosinophils (%) (Auto) 1.7 Basophils (%) (Auto) 0.4 Neutrophils # (Auto) 2.6 Lymphocytes # (Auto) 1.0 Monocytes # (Auto) 0.5 Eosinophils # (Auto) 0.1 Basophils # (Auto) 0.0 CBC Comment DIFF FINAL Differential Comment Radiology Last 48 hours Impressions Abdomen/Pelvis CT 10/18/16 1006 Signed Impressions: Service Date/Time: October 11:27 - CONCLUSION: Findings most consistent with appendicitis. Colonic diverticulosis is also present. Distended gallbladder with stones. Cirrhotic liver appearance. Nodular density in the right middle lobe will need to be followed. Followup with standard contrasted CT of the chest would be recommended on an outpatient basis. Brendan Alatorre MD Cardiovascular: Regular Lungs: Clear Abdomen: Non-distended, Non-tender Extremities: Perfused, SCD's on A/P Assessment and Plan 81yo female s/p repair perforated cecum, stable. advance diet, +BM DC HEIDE, minimal clear possibly DC later today, patient insists on being discharged today Wilmer Maldonado MD Oct 21, 2016 09:26
[2016-10-21] MEDS ORDERED: LEVOTHYROXINE SODIUM 75 MCG TAB PO SCH (10:00)
[2016-10-21] MEDS ORDERED: PROPRANOLOL HCL LA 80 MG CAP PO SCH (11:00)
--- NOTE | 2016-10-22 09:31 | MP ---
cc: PHYLLIS CHO M.D. DATE OF SURGERY 10/18/2016 PROCEDURE 1. Laparoscopic appendectomy. 2. Laparoscopic Chirag-Cut liver biopsy x 3. PREOPERATIVE DIAGNOSIS Acute appendicitis. POSTOPERATIVE DIAGNOSIS 1. Acute appendicitis with foreign body extruding from cecum. 2. Cirrhosis of the liver, unknown etiology. ANESTHESIA General endotracheal. SURGEON MD [place] ESTIMATED BLOOD LOSS 30 mL. FLUIDS 1000 mL crystalloid COMPLICATIONS None. DRAINS HEIDE x 1. SPECIMEN Appendix and Chirag-Cut liver biopsy as well as foreign body. SPECIMENS To pathology. PROCEDURE IN DETAIL The patient was taken to the operating room and placed on the operating table in the supine position. After an adequate level of general endotracheal anesthesia was achieved, the abdomen was prepped and draped in the field. Time-out was taken confirming the correct patient site and procedures to be performed. The skin and subcutaneous tissue was infiltrated in the umbilicus and incision carried through and the peritoneum directly visualized. A 12-mm balloon trocar was inserted and the balloon inflated. The abdomen was insufflated. The patient was placed in Trendelenburg position. Two 5-mm trocars were then placed, one in the suprapubic region and the second in the right lower quadrant. Both entered the abdominal cavity under direct vision uneventfully. At this point the appendix was seen to be fused to the mesenteric tissue as well as near the retroperitoneum. This was all freed up with a combination of blunt dissection and use of the harmonic scalpel. This allowed for dissection of the appendix back to the base at the cecum. A 0-PDS Endoloop was slipped over this and cinched down at the base. The appendix was then divided 1 cm distal to this with the harmonic scalpel, placed into an EndoCatch device and removed via the umbilical port and passed off the table. The abdomen was reexamined and irrigated. A small foreign object was seen extruding from the base of the cecum near but not where the appendix was located. This was removed and appeared to be a small sharp fish bone or other small clear object. This was passed off the table as well. The cecum was then irrigated copiously and no leak was noted. At this point the upper abdomen was also visualized and the patient was noted to have cirrhosis. As the patient only had diabetes, it was not clear for the etiology of this problem. Thus Chirag-Cut liver biopsy was taken on the right. A total of three cores of tissue were removed. The liver was made hemostatic with the harmonic scalpel. When this had been completed the specimens were passed off the table and placed into formalin for pathologic analysis. The cecum was once again reexamined and seen to be dry. All irrigation was aspirated. A Harish-Funes drain was brought in via the suprapubic 5-mm port and out via the right lower quadrant 5-mm trocar. The drain was placed right alongside the cecum. The drain was secured to the skin with a 3-0 nylon suture. Insufflation was then discontinued and the 5-mm trocar sites were observed with the camera. No bleeding was noted from the trocar sites. The laparoscope and umbilical port were then removed. The umbilicus was closed with 0 Vicryl suture in a simple interrupted fashion. The most inferior stitch was a [id number]-[id number] stitch with 0 Vicryl. The remaining local anesthetic was injected into the trocar sites and the skin closed in the umbilicus and the suprapubic site with 4-0 Vicryl in an interrupted buried fashion. These were dressed with Steri-Strips and a 4 x 4 applied around the drain site. The patient was taken back to the recovery room in stable condition. She tolerated the procedure well. MD HUMBERTO Lomas/CLARISSA /10:23 AM /9:23 AM
--- NOTE | 2016-10-30 14:04 | HHI.DS ---
Discharge Summary Admission Date Oct 18, 2016 at 12:30 Discharge Date: Oct 21, 2016 Admitting Diagnosis acute appendicitis Brief History 81yo female s/p repair perforated cecum, stable. PE at Discharge Alert and awake Cardio: RRR Resp: CTAB Abd: lap sites c/d/i; HEIDE with SS drainage Hospital Course This is a 81 year old female s/p repair perforated cecum, stable. The patient' s pain was controlled using oral pain medications. She was able to tolerate a regular diet. She will follow up in the office in about 1 week. Pt Condition on Discharge: Good Discharge Disposition: Discharge Home Discharge Instructions DIET: Follow Instructions for: As Tolerated, No Restrictions Activities you can perform: Partial Weight Bearing Activities to Avoid: Weight Bearing, Prolonged Standing, Strenuous Activity Paulina Slaughter Oct 30, 2016 14:04
== END 2016-10-21 12:32 | disposition home or self-care (01) ==
LOC: NEPE 09:10 → INTOOBSV 12:30 → NEDA 12:30 → N07B 16:46
PROVIDERS: ADMIT Surgery Trauma Surgery; ATTEND Surgery Trauma Surgery
DX: K35.3 Acute appendicitis with localized peritonitis (principal); K74.60 Unspecified cirrhosis of liver; T18.4XXA Foreign body in colon, initial encounter; K75.81 Nonalcoholic steatohepatitis (NASH); I10 Essential (primary) hypertension; E11.9 Type 2 diabetes mellitus without complications; E78.00 Pure hypercholesterolemia, unspecified; E03.9 Hypothyroidism, unspecified; Z79.01 Long term (current) use of anticoagulants; Z88.1 Allergy status to other antibiotic agents; Z88.8 Allergy status to other drugs, medicaments and biological substances; Z79.84 Long term (current) use of oral hypoglycemic drugs; Z85.42 Personal history of malignant neoplasm of other parts of uterus
CPT/HCPCS: 00840; 44970; 47000; 49329; 74177; 80048; 80053; 80074; 81001; 82565; 82948; 83690; 85025; 85610; 85730; 88300; 88304; 88307; 88313; 93005; 94150; 99285; G0378; J0131; J0295; J0690; J1100; J1650; J1885; J2270; J2370; J2405; J2543; J3010; J7120; Q9967